=== PATIENT | male | born 1935 | race Caucasian/White ===

== ENCOUNTER 2019-02-04 12:30 | Inpatient (IN) ==
[2019-02-04] MEDS ORDERED: ONDANSETRON 4 MG/2 ML VIAL IV STA (12:57)
[2019-02-04] MEDS ORDERED: MECLIZINE 25 MG TABLET PO STA (12:57)
[2019-02-04] MEDS ORDERED: SODIUM CHLORIDE 0.9% 500 ML IV STA (12:57)
[2019-02-04 13:08] LABS: Apearance,Urine CLEAR (Clear); Bilirubin,Urine Negative (Negative); Blood, Urine Negative (Negative); Glucose,Urine (UA) Negative (Negative); Hyaline Casts,Urine 1 /LPF (0-3); Ketones,Urine Negative (Negative); Mucus,Urine Occasional /LPF (Occasional); Nitrite,Urine Negative (Negative); Protein,Urine Negative; RBC,Urine 1 /HPF (0-4); Squamous Epithelial Cell,Urine Occasional /HPF (0-10); Urine Color Yellow (Yellow); Urine Specific Gravity 1.024 (1.001-1.035); Urine Urobilinogen < 2.0 EU/DL (0.2-1.0); WBC,Urine 1 /HPF (0-6)
[2019-02-04 13:10] LABS: Basophils # 0.1 10*3/uL (0.0-0.2); Basophils % 0.7 % (0.0-0.8); Eosinophils # 0.2 10*3/uL (0.0-0.87); Eosinophils % 2.5 % (0.00-10.9); Hematocrit 40.2 VOL% (42.0-52.0); Hemoglobin 13.1 GM/DL (14.0-18.0); Immature Granulocytes % 0.3 %; Immature Granulocytes Absolute 0.02 #; Lymphocytes % 13.8 % (21.2-54.2); Mean Corpuscular HGB Conc 32.6 GM/DL (32-36); Mean Corpuscular Volume 99.3 FL (87-102); Mean Platelet Volume 10.3 FL (9.6-12.0); Monocytes % 12.7 % (1.7-12.7); Platelet Count 140 T/CUMM (130-400); Red Blood Count 4.05 MC/CUMM (3.8-5.5); Red Cell Distribution Width 13.7 % (9.3-17.3); White Blood Count 7.5 T/CUMM (4-12)
[2019-02-04 13:25] LABS: PT Patient Result 10.7 SECS
[2019-02-04 13:32] LABS: Albumin 3.7 G/DL (3.4-5.0); Bilirubin,Total 0.8 MG/DL (0.2-1.0); Calcium 8.9 MG/DL (8.5-10.1); Osmolality,Calculated 282.4 MOS/KG (273-304); Thyroid Stimulating Hormone 2.19 uIU/ml (0.358-3.74); Total Protein 7.6 G/DL (6.4-8.3)
[2019-02-04] MEDS ORDERED: MAGNESIUM SULF RIDER 2 GM in PREMIX 1 EACH IV PRN ×2 (15:19→15:57)
[2019-02-04] MEDS ORDERED: ACETAMINOPHEN 325 MG TABLET PO PRN (15:19)
[2019-02-04] MEDS ORDERED: ZALEPLON 5 MG CAPSULE PO PRN (15:19)
[2019-02-04] MEDS ORDERED: MAGNESIUM SULF RIDER 4 GM in PREMIX 1 EACH IV PRN ×2 (15:19→15:57)
[2019-02-04] MEDS ORDERED: DOCUSATE SODIUM 100 MG CAPSULE PO PRN (15:19)
[2019-02-04] MEDS ORDERED: ONDANSETRON 4 MG/2 ML VIAL IV PRN ×2 (15:19→15:57)
[2019-02-04] MEDS ORDERED: diphenhydrAMINE CAP 25 MG CAPSULE PO PRN (15:50)
[2019-02-04] MEDS ORDERED: MORPHINE 4 MG/1 ML VIAL IV PRN (15:57)
[2019-02-04] MEDS ORDERED: POTASSIUM CHLORIDE 20 MEQ TABLET PO PRN (15:57)
[2019-02-04 17:14] LABS: Troponin I < 0.015 NG/ML (0.00-0.045)
[2019-02-04] MEDS: ENOXAPARIN 40 MG/0.4 ML SYRINGE SUBCUT SCH (17:25)
[2019-02-04] MEDS: SODIUM CHLORIDE 0.9% 1,000 ML IV SCH (17:26)
[2019-02-04] MEDS ORDERED: DONEPEZIL 10 MG TABLET PO SCH (21:00)
[2019-02-05 00:46] LABS: Troponin I < 0.015 NG/ML (0.00-0.045)
[2019-02-05 05:31] LABS: Basophils % 0.6 % (0.0-0.8); Eosinophils # 0.2 10*3/uL (0.0-0.87); Eosinophils % 3.9 % (0.00-10.9); Hemoglobin 12.9 GM/DL (14.0-18.0); Immature Granulocytes % 0.4 %; Immature Granulocytes Absolute 0.02 #; Lymphocytes # 1.1 10*3/uL (1.4-4.0); Lymphocytes % 22.2 % (21.2-54.2); Mean Corpuscular HGB Conc 31.5 GM/DL (32-36); Mean Corpuscular Volume 99.8 FL (87-102); Mean Platelet Volume 10.5 FL (9.6-12.0); Neutrophils % 60.9 % (38.7-73.9); Platelet Count 126 T/CUMM (130-400); Red Blood Count 4.11 MC/CUMM (3.8-5.5); Red Cell Distribution Width 13.8 % (9.3-17.3); White Blood Count 4.9 T/CUMM (4-12)
[2019-02-05 05:46] LABS: Troponin I < 0.015 NG/ML (0.00-0.045)
[2019-02-05 05:55] LABS: Albumin 3.2 G/DL (3.4-5.0); Bilirubin,Total 0.8 MG/DL (0.2-1.0); Calcium 8.7 MG/DL (8.5-10.1); Osmolality,Calculated 287.8 MOS/KG (273-304); Risk Ratio 4.65; Thyroid Stimulating Hormone 3.22 uIU/ml (0.358-3.74); Total Protein 6.6 G/DL (6.4-8.3); VLDL CHOLESTEROL 19.6 MG/DL
[2019-02-05] MEDS: SODIUM CHLORIDE 0.9% 1,000 ML IV SCH ×3 (07:01→19:03)
[2019-02-05] MEDS ORDERED: MEMANTINE 5 MG TABLET PO SCH (09:00)
[2019-02-05] MEDS: ASCORBIC ACID 500 MG TABLET PO SCH (09:13)
[2019-02-05] MEDS: MULTIVITAMIN (BEROCCA) TABLET PO SCH (09:14)
[2019-02-05] MEDS: PANTOPRAZOLE 40 MG TABLET PO SCH (09:14)
[2019-02-05] MEDS: amLODIPine 5 MG TABLET PO SCH (09:14)
[2019-02-05] MEDS: CHOLECALCIFEROL 5,000 UNIT TABLET PO SCH (09:14)
[2019-02-05] MEDS: VITAMIN E 400 UNIT CAPSULE PO SCH (09:14)
[2019-02-05] MEDS: ASPIRIN EC 81 MG TABLET PO SCH (09:14)
[2019-02-05] MEDS: ENOXAPARIN 40 MG/0.4 ML SYRINGE SUBCUT SCH (18:16)
[2019-02-05] MEDS: MEMANTINE 5 MG TABLET PO SCH (20:11)
[2019-02-06 06:37] LABS: Calcium 8.7 MG/DL (8.5-10.1)
[2019-02-06] MEDS: SODIUM CHLORIDE 0.9% 1,000 ML IV SCH (09:04)
[2019-02-06] MEDS: amLODIPine 5 MG TABLET PO SCH (09:12)
[2019-02-06] MEDS: ASPIRIN EC 81 MG TABLET PO SCH (09:12)
[2019-02-06] MEDS: CHOLECALCIFEROL 5,000 UNIT TABLET PO SCH (09:12)
[2019-02-06] MEDS: VITAMIN E 400 UNIT CAPSULE PO SCH (09:12)
[2019-02-06] MEDS: PANTOPRAZOLE 40 MG TABLET PO SCH (09:13)
[2019-02-06] MEDS: ASCORBIC ACID 500 MG TABLET PO SCH (09:13)
[2019-02-06] MEDS: MULTIVITAMIN (BEROCCA) TABLET PO SCH (09:13)
[2019-02-06] MEDS ORDERED: ceFAZolin 1,000 MG VIAL IRRIG ONE (16:10)
[2019-02-06] MEDS ORDERED: ceFAZolin 1,000 MG in SYRINGE 1 EACH IV ONE (16:10)
[2019-02-06] MEDS: ENOXAPARIN 40 MG/0.4 ML SYRINGE SUBCUT SCH (17:50)
[2019-02-06] MEDS: MEMANTINE 5 MG TABLET PO SCH (20:41)
[2019-02-07 05:46] LABS: Basophils % 0.4 % (0.0-0.8); Eosinophils # 0.2 10*3/uL (0.0-0.87); Eosinophils % 2.7 % (0.00-10.9); Hematocrit 40.5 VOL% (42.0-52.0); Immature Granulocytes % 0.3 %; Immature Granulocytes Absolute 0.02 #; Lymphocytes # 0.9 10*3/uL (1.4-4.0); Lymphocytes % 13.1 % (21.2-54.2); Mean Corpuscular HGB Conc 32.1 GM/DL (32-36); Mean Corpuscular Volume 98.3 FL (87-102); Mean Platelet Volume 10.6 FL (9.6-12.0); Monocytes % 11.9 % (1.7-12.7); Neutrophils % 71.6 % (38.7-73.9); Platelet Count 131 T/CUMM (130-400); Red Blood Count 4.12 MC/CUMM (3.8-5.5); Red Cell Distribution Width 13.4 % (9.3-17.3); White Blood Count 6.7 T/CUMM (4-12)
[2019-02-07 05:55] LABS: Calcium 8.7 MG/DL (8.5-10.1); Osmolality,Calculated 285.1 MOS/KG (273-304)
[2019-02-07] MEDS ORDERED: ceFAZolin 1,000 MG VIAL IRRIG ONE (08:00)
[2019-02-07] MEDS ORDERED: ceFAZolin 1,000 MG in SYRINGE 1 EACH IV ONE (08:00)
[2019-02-07] MEDS: MULTIVITAMIN (BEROCCA) TABLET PO SCH (08:54)
[2019-02-07] MEDS: ASCORBIC ACID 500 MG TABLET PO SCH (08:55)
[2019-02-07] MEDS: CHOLECALCIFEROL 5,000 UNIT TABLET PO SCH (08:55)
[2019-02-07] MEDS: PANTOPRAZOLE 40 MG TABLET PO SCH (08:55)
[2019-02-07] MEDS: ASPIRIN EC 81 MG TABLET PO SCH (08:55)
[2019-02-07] MEDS: VITAMIN E 400 UNIT CAPSULE PO SCH (08:55)
[2019-02-07] MEDS: amLODIPine 5 MG TABLET PO SCH (08:56)
[2019-02-07] MEDS ORDERED: HEPARIN/NACL 0.9% 2 UNITS/ML 500 ML IV ONE (14:34)
[2019-02-07] MEDS ORDERED: MIDAZOLAM 2 MG/2 ML VIAL ONE ×2 (14:34→15:25)
[2019-02-07] MEDS ORDERED: LIDOCAINE 1% 20 ML VIAL ONE (14:34)
[2019-02-07] MEDS ORDERED: fentaNYL 100 MCG/2 ML VIAL ONE ×2 (14:34→15:26)
[2019-02-07] MEDS ORDERED: TISSUE ADHESIVE 1 EACH APPLICATOR TOP ONE (15:57)
[2019-02-07] MEDS ORDERED: oxyCODONE/ACETAMINOPHEN 5-325 MG TABLET PO PRN (16:35)
[2019-02-07] MEDS: METOPROLOL SUCCINATE XL 50 MG TABLET PO SCH (19:09)
[2019-02-07] MEDS: MEMANTINE 5 MG TABLET PO SCH (21:26)
[2019-02-07] MEDS: ceFAZolin 1,000 MG in SYRINGE 1 EACH IV SCH (21:26)
[2019-02-08 04:41] LABS: Basophils % 0.4 % (0.0-0.8); Eosinophils # 0.2 10*3/uL (0.0-0.87); Eosinophils % 2.7 % (0.00-10.9); Hematocrit 40.9 VOL% (42.0-52.0); Hemoglobin 13.3 GM/DL (14.0-18.0); Immature Granulocytes % 0.3 %; Immature Granulocytes Absolute 0.02 #; Lymphocytes % 13.9 % (21.2-54.2); Mean Corpuscular HGB Conc 32.5 GM/DL (32-36); Mean Corpuscular Volume 97.4 FL (87-102); Mean Platelet Volume 10.6 FL (9.6-12.0); Monocytes % 12.6 % (1.7-12.7); Neutrophils % 70.1 % (38.7-73.9); Platelet Count 137 T/CUMM (130-400); Red Cell Distribution Width 13.6 % (9.3-17.3); White Blood Count 7.3 T/CUMM (4-12)
[2019-02-08 04:55] LABS: Calcium 8.6 MG/DL (8.5-10.1); Osmolality,Calculated 278.5 MOS/KG (273-304)
[2019-02-08] MEDS: ceFAZolin 1,000 MG in SYRINGE 1 EACH IV SCH (06:40)
[2019-02-08] MEDS: METOPROLOL SUCCINATE XL 50 MG TABLET PO SCH (08:38)
[2019-02-08] MEDS: MULTIVITAMIN (BEROCCA) TABLET PO SCH (08:38)
[2019-02-08] MEDS: CHOLECALCIFEROL 5,000 UNIT TABLET PO SCH (08:39)
[2019-02-08] MEDS: amLODIPine 5 MG TABLET PO SCH (08:39)
[2019-02-08] MEDS: ASCORBIC ACID 500 MG TABLET PO SCH (08:39)
[2019-02-08] MEDS: VITAMIN E 400 UNIT CAPSULE PO SCH (08:39)
[2019-02-08] MEDS: PANTOPRAZOLE 40 MG TABLET PO SCH (08:39)
[2019-02-08] MEDS: ASPIRIN EC 81 MG TABLET PO SCH (08:40)
[2019-02-08 11:40] VITALS: BP 110/65
== END 2019-02-08 12:42 | disposition home or self-care (01) | DRG 243 ==
LOC: N.ED 12:30 → N.EDINP 14:44 → N.TELES 15:05 → N.TELEN 02-07 10:15
PROVIDERS: ADMIT Internal Medicine Clinical Cardiac Electrophysiology; ATTEND Internal Medicine Clinical Cardiac Electrophysiology

== ENCOUNTER 2020-11-27 09:36 | Inpatient (IN) ==
[2020-11-27] MEDS ORDERED: DIPH/TET/ACEL PERT BOOSTER VACCINE 0.5 ML VIAL IM ONE (10:10)
[2020-11-27 10:39] LABS: Basophils % 0.4 % (0.0-0.8); Eosinophils # 0.1 10*3/uL (0.0-0.87); Eosinophils % 0.8 % (0.00-10.9); Hematocrit 38.8 VOL% (42.0-52.0); Hemoglobin 12.3 GM/DL (14.0-18.0); Immature Granulocytes % 0.4 %; Immature Granulocytes Absolute 0.04 #; Lymphocytes # 0.7 10*3/uL (1.4-4.0); Mean Corpuscular HGB Conc 31.7 GM/DL (32-36); Mean Corpuscular Volume 99.2 FL (87-102); Monocytes % 10.7 % (1.7-12.7); Neutrophils % 80.7 % (38.7-73.9); Platelet Count 143 T/CUMM (130-400); Red Blood Count 3.91 MC/CUMM (3.8-5.5); Red Cell Distribution Width 13.6 % (9.3-17.3); White Blood Count 10.6 T/CUMM (4-12)
[2020-11-27] MEDS ORDERED: DALBAVANCIN 1,500 MG in DEXTROSE 5% 500 ML IV ONE (10:45)
[2020-11-27 10:57] LABS: Bilirubin,Total 0.9 MG/DL (0.2-1.0); Osmolality,Calculated 279.7 MOS/KG (273-304); Potassium 3.7 MMOL/L (3.5-5.1); Total Protein 7.5 G/DL (6.4-8.2)
[2020-11-27] MEDS ORDERED: ALBUTEROL/IPRATROPIUM 3 ML NEB RESP TX PRN (11:55)
[2020-11-27] MEDS ORDERED: BISACODYL 5 MG TABLET PO PRN (11:55)
[2020-11-27] MEDS ORDERED: MORPHINE 4 MG/1 ML VIAL IV PRN ×2 (11:55)
[2020-11-27] MEDS ORDERED: ONDANSETRON 4 MG/2 ML VIAL IV PRN (11:55)
[2020-11-27] MEDS ORDERED: ACETAMINOPHEN 325 MG TABLET PO PRN (11:55)
[2020-11-27] MEDS ORDERED: VANCOMYCIN 1,000 MG VIAL ONE (13:09)
[2020-11-27] MEDS: LACTATED RINGERS 1,000 ML IV SCH ×2 (13:20→21:12)
[2020-11-27] MEDS: PIPERACILLIN/TAZOBACTAM 3,375 MG in SODIUM CHLORIDE 0.9% 100 ML IV SCH ×2 (13:20→21:05)
[2020-11-27] MEDS ORDERED: VANCOMYCIN INJ 2,000 MG in SODIUM CHLORIDE 0.9% 500 ML IV ONE (14:00)
[2020-11-27] MEDS: MEMANTINE 10 MG TABLET PO SCH (21:05)
[2020-11-28] MEDS: PIPERACILLIN/TAZOBACTAM 3,375 MG in SODIUM CHLORIDE 0.9% 100 ML IV SCH ×3 (03:25→20:58)
[2020-11-28] MEDS: LACTATED RINGERS 1,000 ML IV SCH ×4 (03:59→20:42)
[2020-11-28 07:15] LABS: Basophils % 0.4 % (0.0-0.8); Eosinophils # 0.1 10*3/uL (0.0-0.87); Hematocrit 27.4 VOL% (42.0-52.0); Immature Granulocytes % 0.3 %; Immature Granulocytes Absolute 0.02 #; Lymphocytes # 0.7 10*3/uL (1.4-4.0); Lymphocytes % 8.4 % (21.2-54.2); Mean Corpuscular HGB Conc 33.2 GM/DL (32-36); Mean Corpuscular Volume 98.2 FL (87-102); Mean Platelet Volume 10.6 FL (9.6-12.0); Monocytes % 12.3 % (1.7-12.7); Neutrophils % 77.6 % (38.7-73.9); Red Cell Distribution Width 13.7 % (9.3-17.3); White Blood Count 7.9 T/CUMM (4-12)
[2020-11-28 07:16] LABS: Calcium 7.5 MG/DL (8.5-10.1); Osmolality,Calculated 277.5 MOS/KG (273-304); Potassium 3.6 MMOL/L (3.5-5.1)
[2020-11-28 07:19] LABS: Hemoglobin 9.1 GM/DL (14.0-18.0); Platelet Count 107 T/CUMM (130-400); Red Blood Count 2.79 MC/CUMM (3.8-5.5)
[2020-11-28] MEDS ORDERED: propofoL 200 MG/20 ML VIAL IV ONE (07:56)
[2020-11-28] MEDS ORDERED: LIDOCAINE 2% 5 ML VIAL ONE (07:56)
[2020-11-28] MEDS ORDERED: fentaNYL 100 MCG/2 ML VIAL ONE (07:56)
[2020-11-28] MEDS ORDERED: KETAMINE 500 MG/10 ML VIAL ONE (07:56)
[2020-11-28] MEDS ORDERED: LIDOCAINE 1% 20 ML VIAL ONE (08:02)
[2020-11-28] MEDS ORDERED: MAGNESIUM SULF RIDER 4 GM/100 ML PREMIX IV PRN (08:41)
[2020-11-28] MEDS ORDERED: MAGNESIUM SULF RIDER 2 GM/50 ML PREMIX IV PRN (08:41)
[2020-11-28] MEDS ORDERED: MEMANTINE 5 MG TABLET PO SCH (09:00)
[2020-11-28] MEDS ORDERED: ONDANSETRON 4 MG/2 ML VIAL IV PRN (09:09)
[2020-11-28] MEDS ORDERED: MORPHINE 10 MG/1 ML VIAL IV PRN (09:09)
[2020-11-28] MEDS ORDERED: HYDROmorphone 2 MG/1 ML VIAL IV PRN (09:09)
[2020-11-28] MEDS ORDERED: PROMETHAZINE INJ 25 MG in SODIUM CHLORIDE 0.9% 50 ML IV PRN (09:09)
[2020-11-28] MEDS ORDERED: diphenhydrAMINE 50 MG/1 ML VIAL IV PRN (09:09)
[2020-11-28] MEDS ORDERED: MEPERIDINE 25 MG/1 ML VIAL IV PRN (09:09)
[2020-11-28] MEDS: VANCOMYCIN INJ 1,250 MG in SODIUM CHLORIDE 0.9% 250 ML IV SCH (10:58)
[2020-11-28] MEDS: METOPROLOL SUCCINATE XL 25 MG TABLET PO SCH (11:15)
[2020-11-28] MEDS: MEMANTINE 10 MG TABLET PO SCH ×2 (11:15→20:29)
[2020-11-28] MEDS: PANTOPRAZOLE 40 MG TABLET PO SCH (11:16)
[2020-11-29] MEDS: VANCOMYCIN INJ 1,250 MG in SODIUM CHLORIDE 0.9% 250 ML IV SCH ×2 (03:01→21:07)
[2020-11-29] MEDS: LACTATED RINGERS 1,000 ML IV SCH ×3 (05:28→18:36)
[2020-11-29] MEDS: PIPERACILLIN/TAZOBACTAM 3,375 MG in SODIUM CHLORIDE 0.9% 100 ML IV SCH ×3 (06:11→23:08)
[2020-11-29] MEDS: METOPROLOL SUCCINATE XL 25 MG TABLET PO SCH (08:59)
[2020-11-29] MEDS: MEMANTINE 10 MG TABLET PO SCH ×2 (08:59→21:07)
[2020-11-29] MEDS: PANTOPRAZOLE 40 MG TABLET PO SCH (08:59)
[2020-11-29] MEDS: SODIUM HYPOCHLORITE 0.25% IRRIG 473 ML BOTTLE TOP SCH (10:45)
[2020-11-30] MEDS: PIPERACILLIN/TAZOBACTAM 3,375 MG in SODIUM CHLORIDE 0.9% 100 ML IV SCH ×3 (06:44→20:40)
[2020-11-30 06:53] LABS: Basophils % 0.6 % (0.0-0.8); Eosinophils # 0.3 10*3/uL (0.0-0.87); Eosinophils % 4.8 % (0.00-10.9); Hematocrit 36.3 VOL% (42.0-52.0); Hemoglobin 11.5 GM/DL (14.0-18.0); Immature Granulocytes % 0.5 %; Immature Granulocytes Absolute 0.03 #; Lymphocytes # 1.2 10*3/uL (1.4-4.0); Lymphocytes % 17.6 % (21.2-54.2); Mean Corpuscular HGB Conc 31.7 GM/DL (32-36); Mean Corpuscular Volume 99.5 FL (87-102); Monocytes % 10.4 % (1.7-12.7); Neutrophils % 66.1 % (38.7-73.9); Platelet Count 156 T/CUMM (130-400); Red Blood Count 3.65 MC/CUMM (3.8-5.5); Red Cell Distribution Width 13.2 % (9.3-17.3); White Blood Count 6.6 T/CUMM (4-12)
[2020-11-30] MEDS: LACTATED RINGERS 1,000 ML IV SCH ×2 (07:21→14:43)
[2020-11-30 07:29] LABS: Calcium 8.7 MG/DL (8.5-10.1); Osmolality,Calculated 281.3 MOS/KG (273-304); Potassium 4.1 MMOL/L (3.5-5.1)
[2020-11-30] MEDS: PANTOPRAZOLE 40 MG TABLET PO SCH (09:07)
[2020-11-30] MEDS: METOPROLOL SUCCINATE XL 25 MG TABLET PO SCH (09:07)
[2020-11-30] MEDS: MEMANTINE 10 MG TABLET PO SCH ×2 (09:07→20:40)
[2020-11-30] MEDS: SODIUM HYPOCHLORITE 0.25% IRRIG 473 ML BOTTLE TOP SCH (09:07)
[2020-11-30] MEDS: VANCOMYCIN INJ 1,000 MG in SODIUM CHLORIDE 0.9% 250 ML IV SCH (17:48)
[2020-12-01] MEDS: PIPERACILLIN/TAZOBACTAM 3,375 MG in SODIUM CHLORIDE 0.9% 100 ML IV SCH (05:15)
[2020-12-01] MEDS: MEMANTINE 10 MG TABLET PO SCH ×2 (09:47→20:45)
[2020-12-01] MEDS: SODIUM HYPOCHLORITE 0.25% IRRIG 473 ML BOTTLE TOP SCH (09:47)
[2020-12-01] MEDS: PANTOPRAZOLE 40 MG TABLET PO SCH (09:47)
[2020-12-01] MEDS: METOPROLOL SUCCINATE XL 25 MG TABLET PO SCH (09:47)
[2020-12-01] MEDS: CLINDAMYCIN INJ 300 MG/50 ML PREMIX IV SCH ×2 (10:18→17:10)
[2020-12-01] MEDS: VANCOMYCIN INJ 1,000 MG in SODIUM CHLORIDE 0.9% 250 ML IV SCH (10:19)
[2020-12-01] MEDS: LACTATED RINGERS 1,000 ML IV SCH (12:51)
[2020-12-01] MEDS: RIVAROXABAN 15 MG TABLET PO SCH (20:45)
[2020-12-02] MEDS: CLINDAMYCIN INJ 300 MG/50 ML PREMIX IV SCH ×4 (00:12→17:43)
[2020-12-02] MEDS: LACTATED RINGERS 1,000 ML IV SCH ×2 (03:54→18:07)
[2020-12-02 07:14] LABS: Calcium 8.5 MG/DL (8.5-10.1); Osmolality,Calculated 281.3 MOS/KG (273-304); Potassium 3.5 MMOL/L (3.5-5.1)
[2020-12-02] MEDS: PANTOPRAZOLE 40 MG TABLET PO SCH (09:18)
[2020-12-02] MEDS: METOPROLOL SUCCINATE XL 25 MG TABLET PO SCH (09:18)
[2020-12-02] MEDS: MEMANTINE 10 MG TABLET PO SCH ×2 (09:18→20:19)
[2020-12-02] MEDS: SODIUM HYPOCHLORITE 0.25% IRRIG 473 ML BOTTLE TOP SCH (10:45)
[2020-12-02] MEDS: RIVAROXABAN 15 MG TABLET PO SCH (20:19)
[2020-12-03] MEDS: LACTATED RINGERS 1,000 ML IV SCH (00:05)
[2020-12-03] MEDS: CLINDAMYCIN INJ 300 MG/50 ML PREMIX IV SCH ×3 (00:05→13:05)
[2020-12-03] MEDS: PANTOPRAZOLE 40 MG TABLET PO SCH (09:55)
[2020-12-03] MEDS: METOPROLOL SUCCINATE XL 25 MG TABLET PO SCH (09:55)
[2020-12-03] MEDS: MEMANTINE 10 MG TABLET PO SCH (09:55)
[2020-12-03] MEDS: SODIUM HYPOCHLORITE 0.25% IRRIG 473 ML BOTTLE TOP SCH (09:55)
[2020-12-03] MEDS ORDERED: TUBERCULIN SKIN TEST 0.1 ML SYRINGE INTRADERM ONE (11:00)
[2020-12-03 14:53] VITALS: BP 122/64
== END 2020-12-03 14:58 | disposition swing bed (61) | DRG 908 ==
LOC: N.ED 09:36 → N.EDINP 11:55 → N.5E 15:58
PROVIDERS: ADMIT Surgery; ATTEND Surgery